=== PATIENT | female | born 1975 | race Caucasian/White ===

== ENCOUNTER 2016-11-03 23:09 | Emergency (ER) | payer BC ==
[~2016-11-03] VITALS: Ht 160 cm; Wt 52.3 kg
[~2016-11-03 23:09] MED LIST: NOHOMEMEDS
[2016-11-03 23:48] LABS: HEMATOCRIT 38.1 % (36.0-46.0); MCH 30.8 PG (29.0-34.0); MCHC 33.3 G/DL (30.0-36.0); MCV 92.3 FL (83-99); MEAN PLAT.VOLUME 9.6 uM^3 (9.5-12.4); PLATELET COUNT 311 K/uL (156-360); RBC DIS.WIDTH-CV 11.7 % (11.8-14.6); RBC DIS.WIDTH-SD 39.4 % (39-53); RED BLOOD COUNT 4.13 M/uL (3.80-5.20)
[2016-11-03 23:58] LABS: ADD MIUA? YES; BILIRUBIN NEGATIVE; BLOOD NEGATIVE; COLOR AMBER ((YELLOW)); GLUCOSE (STRIP) NEGATIVE; KETONES 20; LEUKOCYTES LARGE; NITRITE NEGATIVE; PROTEIN (STRIP) 30; SPECIFIC GRAVITY 1.028 (1.000-1.030)
[2016-11-04 00:11] LABS: CHLORIDE 109 mEq/L (99-109); POTASSIUM 3.5 mEq/L (3.7-5.4); SODIUM 142 mEq/L (136-147)
[2016-11-04 00:12] LABS: QUANTITATIVE HCG < 4.0 MIU/ML
[2016-11-04 00:13] LABS: GLUCOSE 91 mg/dL (70-99)
[2016-11-04 00:14] LABS: ANION GAP 12 MEQ/L (2-14)
[2016-11-04 00:15] LABS: TOTAL BILIRUBIN 0.7 mg/dL (0.0-1.0)
[2016-11-04 00:16] LABS: ALKALINE PHOSPHATASE 57 IU/L (3-129)
[2016-11-04 00:17] LABS: GFR ESTIMATE (CALCULATED) > 59 mL/min/
[2016-11-04 00:18] LABS: UREA NITROGEN (BUN) 11 mg/dL (9-23)
[2016-11-04 00:34] LABS: BACTERIA 2+ /HPF; EPITHELIAL CELLS 3+ /HPF; MUCUS 1+ /LPF; RED BLOOD CELLS NONE SEEN /HPF (0-5); UCUL ADDED? YES
[2016-11-04 01:05] VITALS: BP 128/74
[2016-11-04] MEDS ORDERED: ZOFRAN8 MG PO (01:29)
[2016-11-04] MEDS ORDERED: KEFLEX250 MG PO (01:29)
[2016-11-04 01:35] LABS: LIPASE 49 U/L (1.0-51.0)
== END 2016-11-04 01:36 | disposition left against medical advice (07) ==
LOC: EME 23:09
DX: N30.90 Cystitis, unspecified without hematuria (principal); R11.2 Nausea with vomiting, unspecified; Z87.440 Personal history of urinary (tract) infections
CPT/HCPCS: 80053; 81003; 83690; 84702; 85027; 87086; 99281; 99283

== ENCOUNTER 2016-11-30 14:45 | Emergency (ER) | payer BC ==
[~2016-11-30] VITALS: Ht 160 cm; Wt 51.2 kg
[~2016-11-30 14:45] MED LIST changes: +KEFLEX250 MG PO; +ZOFRAN8 MG PO
[2016-11-30 15:35] LABS: HEMATOCRIT 37.4 % (36.0-46.0); MCH 31.2 PG (29.0-34.0); MCHC 33.2 G/DL (30.0-36.0); MEAN PLAT.VOLUME 9.9 uM^3 (9.5-12.4); PLATELET COUNT 227 K/uL (156-360); RBC DIS.WIDTH-CV 11.8 % (11.8-14.6); RBC DIS.WIDTH-SD 40.4 % (39-53); RED BLOOD COUNT 3.98 M/uL (3.80-5.20); WHITE BLOOD COUNT 9.1 K/uL (4.1-10.2)
[2016-11-30 15:42] LABS: CHLORIDE 107 mEq/L (99-109); POTASSIUM 3.6 mEq/L (3.7-5.4); SODIUM 139 mEq/L (136-147)
[2016-11-30 15:44] LABS: GLUCOSE 96 mg/dL (70-99)
[2016-11-30 15:46] LABS: ANION GAP 12 MEQ/L (2-14); TOTAL BILIRUBIN 0.3 mg/dL (0.0-1.0)
[2016-11-30 15:48] LABS: ALKALINE PHOSPHATASE 44 IU/L (3-129); GFR ESTIMATE (CALCULATED) 38 mL/min/
[2016-11-30 15:48] LABS: ADD MIUA? YES; BILIRUBIN NEGATIVE; BLOOD NEGATIVE; COLOR YELLOW ((YELLOW)); GLUCOSE (STRIP) NEGATIVE; KETONES 5; LEUKOCYTES TRACE; NITRITE NEGATIVE; PROTEIN (STRIP) 100; SPECIFIC GRAVITY 1.031 (1.000-1.030); UROBILINOGEN 0.2 MG/DL (0.2-1.0)
[2016-11-30 15:49] LABS: UREA NITROGEN (BUN) 19 mg/dL (9-23)
[2016-11-30 15:51] LABS: LIPASE 28 U/L (1.0-51.0)
[2016-11-30 16:01] LABS: QUANTITATIVE HCG < 4.0 MIU/ML
[2016-11-30 16:21] LABS: BACTERIA RARE /HPF; EPITHELIAL CELLS 2+ /HPF; HYALINE CASTS 15-20 /LPF; MUCUS TRACE /LPF; RED BLOOD CELLS NONE SEEN /HPF (0-5); UCUL ADDED? NO; UNCLASSIFIED CRYSTALS 1+ /HPF; WHITE BLOOD CELLS 40-50 /HPF (0-5); WHITE BLOOD CELLS CLUMP FEW /HPF (0-5)
[2016-11-30] MEDS ORDERED: ZOFRAN ODT4 MG PO (16:27)
[2016-11-30] MEDS ORDERED: BENTYL10 MG PO (16:27)
[2016-11-30 16:36] VITALS: BP 125/85
== END 2016-11-30 16:37 | disposition home or self-care (01) ==
LOC: EME 14:45
DX: R10.10 Upper abdominal pain, unspecified (principal); R11.2 Nausea with vomiting, unspecified; Z87.891 Personal history of nicotine dependence
CPT/HCPCS: 74020; 80053; 81003; 83690; 84702; 85027; 99281; 99284